=== PATIENT | female | born 1965 | race Caucasian/White ===

== ENCOUNTER 2019-12-01 03:32 | Emergency (ER) | payer OTHER ==
[~2019-12-01] VITALS: Ht 160 cm; Wt 63.5 kg
== END 2019-12-01 13:38 | disposition home or self-care (01) ==
LOC: ER 03:32
DX: N13.2 Hydronephrosis with renal and ureteral calculous obstruction (principal)

== ENCOUNTER → 2020-01-09 06:00 | Outpatient (CLI) | payer OTHER | END | disposition home or self-care (01) | LOC: LAB 06:00 → EDSTATUS 01-11 13:35 → CIR.AMB 01-11 15:04 | DX: N95.0 Postmenopausal bleeding (principal) ==

== ENCOUNTER 2020-07-09 09:21 | Day surgery (SDC) | payer OTHER ==
[~2020-07-09 09:21] MED LIST: CATAFLAN PO; MULTIVITAMINS1 EAC9 PO
== END 2020-07-09 17:00 | disposition home or self-care (01) ==
LOC: CIR.AMB 09:21
PROVIDERS: ATTEND Obstetrics & Gynecology
DX: N84.0 Polyp of corpus uteri (principal); Z20.828 Contact with and (suspected) exposure to other viral communicable diseases